=== PATIENT | female | born 1965 | race Caucasian/White ===

== ENCOUNTER 2023-03-25 10:58 | Emergency (ER) | payer OTHER, MEDICAID ==
[~2023-03-25] VITALS: Ht 170.2 cm; Wt 64.4 kg
[~2023-03-25 10:58] MED LIST: CITA20TA28 PO; FESO8TAB PO; FLUT16SP2 NS; LEVO50TA67 PO; NAPR-56 PO; ZOLP5TAB8 PO
[2023-03-25 11:14] VITALS: TEMP 97.5
--- NOTE | 2023-03-25 11:27 | NUR ---
pt states bruising on abdomen where defifberlator is not active attched to heart did not remove it
[2023-03-25 12:04] LABS: BASOPHILS # (AUTO) 0.1 X10'3 (0-0.2); BASOPHILS % (AUTO) 0.8 % (0-1); EOSINOPHILS # (AUTO) 0.3 X10'3 (0-0.9); EOSINOPHILS % (AUTO) 4.4 % (0-6); HEMOGLOBIN 14.6 g/dl (12.0-16.0); LYMPHOCYTES % (AUTO) 31.7 % (21-51); MEAN CORPUSCULAR HEMOGLOBIN 30.7 PG (27.0-31.0); MEAN CORPUSCULAR HGB CONC 33.9 g/dL (33.0-36.5); MEAN CORPUSCULAR VOLUME 90.4 FL (78-98); MEAN PLATELET VOLUME 8.6 FL (7.4-10.4); MONOCYTES # (AUTO) 0.6 X10'3 (0-0.9); NEUTROPHILS # (AUTO) 3.4 X10'3 (1.8-7.7); NEUTROPHILS % (AUTO) 54.1 % (42-75); PLATELET COUNT 286 X10'3 (140-440); RED BLOOD COUNT 4.75 X10'6 (4.20-5.60); RED CELL DISTRIBUTION WIDTH 14.3 % (11.5-14.5); WHITE BLOOD COUNT 6.2 X10'3 (4.5-11.0)
[2023-03-25 12:15] LABS: APTT 27 SECONDS (22-32); D-DIMER 0.37 MG/L FEU (0-0.50); PROTHROMBIN TIME 10.3 SECONDS (9.0-12.0)
[2023-03-25 12:16] LABS: ALANINE AMINOTRANSFERASE 24 U/L (12-78); ALBUMIN 4.1 G/DL (3.4-5.0); ALBUMIN/GLOBULIN RATIO 1.2 (1.1-1.5); ALKALINE PHOSPHATASE 71 IU/L (46-116); ANION GAP 7 (8-16); ASPARTATE AMINO TRANSFERASE 21 U/L (10-37); BILIRUBIN,TOTAL 0.9 MG/DL (0.1-1.0); BLOOD UREA NITROGEN 10 MG/DL (7-18); BUN/CREATININE RATIO 13.5 (10.0-20.0); CALCIUM 9.6 MG/DL (8.5-10.1); CHLORIDE 104 MMOL/L (99-107); CREATININE 0.74 MG/DL (0.40-0.90); GLUCOSE 102 MG/DL (70-104); POTASSIUM 3.6 MMOL/L (3.5-5.1); SODIUM 141 MMOL/L (135-145); TOTAL CARBON DIOXIDE 29.7 MMOL/L (24-32); TOTAL PROTEIN 7.4 G/DL (6.4-8.2); eCRCL 79 ML/MIN; eGFR 80 ML/MIN
[2023-03-25 12:24] LABS: MAGNESIUM 2.2 MG/DL (1.5-2.4); PRO BRAIN NATRIURETIC PEPTIDE 166 PG/ML (0-125)
[2023-03-25] MEDS ORDERED: ONDA4TAB12 PO (16:24)
[2023-03-25 16:45] VITALS: BP 160/98; PULSE 65; RESP 18; O2SAT 100
== END 2023-03-25 16:46 | disposition home or self-care (01) ==
LOC: ER 10:59
DX: D17.1 Benign lipomatous neoplasm of skin and subcutaneous tissue of trunk (principal); R19.00 Intra-abdominal and pelvic swelling, mass and lump, unspecified site
CPT/HCPCS: 36415; 74018; 76882; 80053; 83735; 83880; 84484; 85025; 85379; 85610; 85730; 93005; 99285